=== PATIENT | female | born 1955 | race Caucasian/White ===

== ENCOUNTER 2018-04-19 19:11 | Emergency (ER) | payer OTHER ==
[2018-04-19] MEDS ORDERED: DIPHTH,PERTUSS(ACELL),TET 0.5 ML DISP.SYRIN IM ONE ×2 (19:37→21:15)
[2018-04-19] MEDS ORDERED: IBUPROFEN 600 MG TABLET (FP) PO ONE (19:38)
--- NOTE | 2018-04-19 19:39 | PDOC ---
Rapid Medical Evaluation Time Seen by Provider: 04/19/18 19:37 Medical Evaluation: Allergies Allergy/AdvReac Type Severity Reaction Status Date / Time No Known Allergies Allergy Verified 07/29/11 06:54 04/19/18 19:38 I performed a brief in-person evaluation of this patient. Chief complaint is: Hand laceration Pertinent physical exam findings include: 4cm laceration to palmar aspect of right hand, moderate active bleeding I have ordered the following: Tetanus booster, Motrin Patient will proceed to the ED for further evaluation. Discharge Disposition - Diagnosis Laceration of hand - Referrals - Patient Instructions - Post Discharge Activity
[2018-04-19 19:42] VITALS: BP 144/69; PULSE 81; TEMP 98.3; BMI 36.6
[2018-04-19] MEDS ORDERED: IBUPROFEN 400 MG TABLET (FP) PO ONE (21:15)
[2018-04-19] MEDS ORDERED: LIDOCAINE HCL 1%, 10 MG/ML (50 mL VIAL) SQ ONE (21:18)
[2018-04-19] MEDS ORDERED: LIDOCAINE HCL 1%, 10 MG/ML (20ML VIAL) ONE (21:19)
[2018-04-19] MEDS ORDERED: ACETAMINOPHEN 500 MG TABLET (FP) PO ONE (21:44)
[2018-04-19] MEDS ORDERED: ACETAMINOPHEN 500 MG TABLET (FP) ONE (21:48)
--- NOTE | 2018-04-19 21:52 | PDOC ---
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 Tetanus is updated today in the emergency room Past History - Past Medical History Allergies/Adverse Reactions: Allergies Allergy/AdvReac Type Severity Reaction Status Date / Time No Known Allergies Allergy Verified 07/29/11 06:54 Home Medications: Ambulatory Orders Acetaminophen [Tylenol -] 500 mg PO BID PRN 10/06/17 Medical Marijuana [Medical Marijuana Oil] 1 cap PO BID PRN 12/07/17 Cephalexin [Keflex] 500 mg PO QID #20 capsule 04/19/18 Asthma: No Cancer: No Cardiac Disorders: No COPD: No CHF: No Diabetes: No GI Disorders: Yes (gastritis due to NSAIDs or stress) HTN: No Hypercholesterolemia: Yes (no medication) Liver Disease: No Seizures: No Thyroid Disease: No - Surgical History Abdominal Surgery: No Appendectomy: No Cardiac Surgery: No Cholecystectomy: No Lung Surgery: No Neurologic Surgery: No Orthopedic Surgery: No - Immunization History Immunization Up to Date: Yes - Suicide/Smoking/Psychosocial Hx Smoking Status: No Smoking History: Never smoked Have you smoked in the past 12 months: No Number of Cigarettes Smoked Daily: 0 Information on smoking cessation initiated: No Hx Alcohol Use: No Drug/Substance Use Hx: No Substance Use Type: Alcohol, Marijuana Hx Substance Use Treatment: No Review of Systems - Review of Systems Integumentary: Yes: See HPI *Physical Exam - Vital Signs Last Vital Signs Temp Pulse Resp BP Pulse Ox 98.3 F 81 18 144/69 98 04/19/18 19:40 04/19/18 19:40 04/19/18 19:40 04/19/18 19:40 04/19/18 19:40 - Physical Exam Comments: 04/19/18 21:48 Right hand skin color and temperature are normal. There is about a 3 cm laceration on the ulnar aspect of the right hand overlying the hyperthenar eminence. There are no gross sensorimotor deficit subcutaneous fat is exposed Moderate Sedation - Procedure Monitoring Vital Signs: Procedure Monitoring Vital Signs Temperature 98.3 F 04/19/18 19:40 Pulse Rate 81 04/19/18 19:40 Respiratory Rate 18 04/19/18 19:40 Blood Pressure 144/69 04/19/18 19:40 O2 Sat by Pulse Oximetry (%) 98 04/19/18 19:40 ED Treatment Course - Medications Given in the ED: ED Medications Discontinued Medications Generic Name Dose Route Start Last Admin Trade Name Gaurav PRN Reason Stop Dose Admin Lidocaine HCl 20 ml 04/19/18 21:18 04/19/18 21:28 Xylocaine 1% SQ 04/19/18 21:19 20 ml ONCE ONE Administration Medical Decision Making - Medical Decision Making 04/19/18 21:49 Under aseptic technique 15 mL of 1% lidocaine without epinephrine was injected into the area around the wound, the wound was copiously irrigated edges approximated with 5 horizontal mattress sutures. This was tolerated well dry sterile dressing was placed *DC/Admit/Observation/Transfer Diagnosis at time of Disposition: Laceration of hand - Discharge Dispostion Disposition: HOME Condition at time of disposition: Stable Decision to Admit order: No - Referrals Referrals: Ricardo Saldaña MD [Primary Care Provider] - Khang Ornelas MD [Staff Physician] - - Patient Instructions Printed Discharge Instructions: DI for Laceration Repair, DI for Laceration Repair -- Simple Additional Instructions: Return to the emergency room should symptoms worsen or go unresolved. Please follow-up with hand surgery in 2-3 days for further evaluation and treatment options. Return to the emergency room should symptoms worsen or he develop any pain fever drainage swelling or redness around the area of the wound. The dressing on for 48 hours at the which he may remove and wash and with soap and water and leave it open to air. Prophylactic course of antibiotics was given the please take the medication as directed Tylenol Motrin as directed for pain. - Post Discharge Activity
== END 2018-04-19 22:05 | disposition home or self-care (01) ==
LOC: JERFT 19:11
PROC: 0HQFXZZ Repair Right Hand Skin, External Approach (ICD-10-PCS; principal; 2018-04-19)
PROC: 3E0234Z Introduction of Serum, Toxoid and Vaccine into Muscle, Percutaneous Approach (ICD-10-PCS; 2018-04-19)
DX: S61.411A Laceration without foreign body of right hand, initial encounter (principal); W26.0XXA Contact with knife, initial encounter; Y93.89 Activity, other specified; Y92.89 Other specified places as the place of occurrence of the external cause; E78.00 Pure hypercholesterolemia, unspecified
CPT/HCPCS: 12001-25; 90471; 90715; 99281-25

== ENCOUNTER 2018-04-29 11:39 | Emergency (ER) | payer OTHER ==
[2018-04-29 11:51] VITALS: BMI 36.6
--- NOTE | 2018-04-29 12:04 | PDOC ---
History of Present Illness - General Chief Complaint: Headache Stated Complaint: HEADACHE History Source: Patient Exam Limitations: No Limitations - History of Present Illness Initial Comments: 04/29/18 12:24 63 yo F with a hx of migraines, fibromyalgia, chronic neck/back pain, and HLD presents to the emergency department with 5 days of headache. Per the patient, the pain is 10/10, located in the right frontal and maxillary position, described as sharp/throbbing, without radiation, constant, without relief with tylenol and motrin. She states the headache is similar to previous migraine like headaches in the past, but usually terminated with tylenol and not as localizing (global previous episodes). In addition, she feels a pressure behind her eye that is feels like is pushing her eye into a different direction. Endorses nausea, photophobia, and phonophobia. Denies visual changes, head trauma, fevers, nasal congestion, nose/throat pain, neck pain, chest pain, SOB, and vomiting. Shx: Right shoulder surgery, spine surgeries for herniated discs Allergies: NKDA Social: Denies tobacco, alcohol, and substance abuse. Past History - Past Medical History Allergies/Adverse Reactions: Allergies Allergy/AdvReac Type Severity Reaction Status Date / Time No Known Allergies Allergy Verified 04/29/18 11:46 Home Medications: Ambulatory Orders Acetaminophen [Tylenol -] 500 mg PO BID PRN 10/06/17 Medical Marijuana [Medical Marijuana Oil] 1 cap PO BID PRN 12/07/17 Naproxen [Naprosyn -] 500 mg PO BID #14 tablet 04/29/18 Ondansetron [Zofran -] 4 mg PO TID #15 tablet 04/29/18 Asthma: No Cancer: No Cardiac Disorders: No COPD: No CHF: No Diabetes: No GI Disorders: Yes (gastritis due to NSAIDs or stress) HTN: No Hypercholesterolemia: Yes (no medication) Liver Disease: No Seizures: No Thyroid Disease: No - Surgical History Abdominal Surgery: No Appendectomy: No Cardiac Surgery: No Cholecystectomy: No Lung Surgery: No Neurologic Surgery: No Orthopedic Surgery: No - Immunization History Immunization Up to Date: Yes - Suicide/Smoking/Psychosocial Hx Smoking Status: No Smoking History: Unknown if ever smoked Have you smoked in the past 12 months: No Number of Cigarettes Smoked Daily: 0 Hx Alcohol Use: No Drug/Substance Use Hx: No Substance Use Type: Alcohol, Marijuana Hx Substance Use Treatment: No Review of Systems - Review of Systems Able to Perform ROS?: Yes Is the patient limited Portuguese proficient: No Constitutional: Yes: Weakness. No: Chills, Diaphoresis, Fever HEENTM: Yes: Eye Pain (right eye), Double Vision (transient), Cataracts. No: Recent change in vision, Ear Pain, Ocular Prothesis, Ear Discharge, Nose Pain, Nose Congestion, Tinnitus, Hearing Loss, Throat Pain, Throat Swelling, Mouth Pain Respiratory: No: Cough, Shortness of Breath, Hemoptysis Cardiac (ROS): No: Chest Pain, Lightheadedness, Palpitations, Syncope, Chest Tightness ABD/GI: Yes: Nausea. No: Constipated, Diarrhea, Rectal Bleeding, Vomiting, Tarry Stools : No: Burning, Dysuria, Hematuria, Urgency Musculoskeletal: Yes: Back Pain, Neck Pain. No: Joint Pain Integumentary: No: Erythema, Rash, Sweating Neurological: Yes: Headache. No: Numbness, Tingling, Tremors, Ataxia, Dizziness Psychiatric: No: Stressors Endocrine: No: Unexplained Weight Gain Hematologic/Lymphatic: No: Anemia *Physical Exam - Vital Signs Last Vital Signs Temp Pulse Resp BP Pulse Ox 98.3 F 81 18 133/72 99 04/29/18 11:50 04/29/18 11:50 04/29/18 11:50 04/29/18 11:50 04/29/18 11:50 - Physical Exam General Appearance: Yes: Nourished, Appropriately Dressed, Obese. No: Apparent Distress, Intoxicated HEENT: positive: EOMI, GERARDO, Normal ENT Inspection, Normal Voice, TMs Normal, Pharynx Normal, Nasal Congestion, Sinus Tenderness (left sided frontal tenderness with increased pain in the right), Hearing Grossly Normal. negative : Pale Conjunctivae, Scleral Icterus (R), Scleral Icterus (L), Muffled/Hoarse voice, Pharyngeal Erythema, Tonsillar Exudate, Tonsillar Erythema, Excessive drooling Neck: positive: Trachea midline, Supple. negative: Tender, Lymphadenopathy (R) , Lymphadenopathy (L), Tender lateral, Tender midline Respiratory/Chest: positive: Lungs Clear, Normal Breath Sounds. negative: Chest Tender, Respiratory Distress, Accessory Muscle Use, Crackles, Rales, Rhonchi, Stridor, Wheezing, Hyperresonant Cardiovascular: positive: Regular Rhythm, Regular Rate, S1, S2. negative: Systolic Murmur Gastrointestinal/Abdominal: positive: Normal Bowel Sounds, Flat, Soft. negative : Tender, Guarding, Rebound, Tenderness Lymphatic: negative: Adenopathy Musculoskeletal: positive: Normal Inspection. negative: CVA Tenderness, Vertebral Tenderness Extremity: positive: Normal Capillary Refill, Normal Inspection, Normal Range of Motion. negative: Tender Integumentary: positive: Normal Color, Dry, Warm Neurologic: positive: chair and couch maker II-XII NML intact (visual equity equal bilaterally. 20 /25 bilaterally), Fully Oriented, Alert, Normal Mood/Affect, Normal Response, Motor Strength 5/5. negative: EOM Palsy, Facial Droop, Sensory Deficit Moderate Sedation - Procedure Monitoring Vital Signs: Procedure Monitoring Vital Signs Temperature 98.3 F 04/29/18 11:50 Pulse Rate 81 04/29/18 11:50 Respiratory Rate 18 04/29/18 11:50 Blood Pressure 133/72 04/29/18 11:50 O2 Sat by Pulse Oximetry (%) 99 04/29/18 11:50 ED Treatment Course - LABORATORY CBC & Chemistry Diagram: 04/29/18 13:08 04/29/18 13:30 Medical Decision Making - Medical Decision Making 04/29/18 12:32 63 yo F with a hx of migraines, fibromyalgia, chronic neck/back pain, and HLD presents to the emergency department with 5 days of headache. Initial vitals: Initial Vital Signs Temp Pulse Resp BP Pulse Ox 98.3 F 81 18 133/72 99 04/29/18 11:50 04/29/18 11:50 04/29/18 11:50 04/29/18 11:50 04/29/18 11:50 Work up ddx: migraine with complications vs sinusitis vs Laboratory Tests 04/29/18 04/29/18 13:08 13:30 WBC 8.5 RBC 4.85 Hgb 15.5 H Hct 44.6 MCV 92.0 MCH 31.9 MCHC 34.7 RDW 13.4 Plt Count 195 MPV 9.2 Absolute Neuts (auto) 5.5 Neutrophils % 64.3 Lymphocytes % 26.5 Monocytes % 7.3 Eosinophils % 1.0 Basophils % 0.9 Nucleated RBC % 0 ESR Cancelled Sodium 139 Potassium 4.8 Chloride 108 H Carbon Dioxide 28 Anion Gap 3 L BUN 17 Creatinine 0.9 Creat Clearance w eGFR > 60 Random Glucose 107 H Calcium 8.8 Total Bilirubin 0.8 AST 19 ALT 45 Alkaline Phosphatase 137 H C-Reactive Protein Cancelled Total Protein 7.8 Albumin 4.0 Interventions with the following: tylenol, magnesium, reglan, NS, zofran, and toradol. Patient had significant improvement in pain with these medications. CT head was negative for intracranial pathologies. patient stated this headache is similar to ones she had in the past but with higher severity. likely this is a complicated migraine. will be discharged with neurology follow up. she was able to ambulate on her own volition without complication. Dispo: Discharge 04/30/18 11:10 04/30/18 14:07 *DC/Admit/Observation/Transfer Diagnosis at time of Disposition: Migraine Qualifiers: Migraine type: unspecified Status migrainosus presence: without status migrainosus Intractability: not intractable Qualified Code(s): G43.909 - Migraine, unspecified, not intractable, without status migrainosus - Discharge Dispostion Disposition: HOME Decision to Admit order: No - Prescriptions Prescriptions: Naproxen [Naprosyn -] 500 mg PO BID #14 tablet Ondansetron [Zofran -] 4 mg PO TID #15 tablet - Referrals Referrals: Ricardo Saldaña MD [Primary Care Provider] - Oleksandr Luna MD [Staff Physician] - - Patient Instructions Printed Discharge Instructions: DI for Migraine Additional Instructions: you were seen for your headache. your head CT was negative for acute pathologies. your labs were within normal limits. your headache improved significantly with the medications here. please take the medications prescribed to you as directed. take the naproxen every 12 hours NEEDED for pain. please take the zofran every 8 hours NEEDED for nausea and vomiting. please also follow up with Dr. Luna within 3 days after discharge, your care is considered incomplete until this occurs. please return to the emergency department if you have worsening symptoms or new concerning symptoms such as fevers with headache, weakness on one side, slurring of speech or other signs of stroke, and confusion. thank you. - Post Discharge Activity
--- NOTE | 2018-04-29 12:34 | PDOC ---
Attending Attestation - HPI HPI: 04/29/18 13:31 "The patient is a 63-year-old female with a past medical history significant for fibromyalgia, migraine, HLD and Chronic back pain presents to the emergency department with a headache. The patient presents with 5 days of right frontal and maxillary headache, thats 10/10 in severity. The patient reports the pain is gradual onset, constant, nonradiating, no relief noted with sleeping or with Tylenol or Motrin. The patient reports similar pain in the past, that would go away with Tylenol. The patient reports associated symptoms of right eye pressure , endorses photophobia and phonophobia. Denies recent sickness, nasal congestions, neck pain, cp, sob, numbness?tingling/weakness, focal weakness/ tinging/numnbess or vision changes. Allergies: NKDA Social history: Medical marijuana use. No tobacco or alcohol use reported. Surgical history: Cyst removal PCP: Greg Peralta MD" - Medical Decision Making 04/29/18 13:31 Documentation prepared by Emma Ascencio, acting as medical lab specialist for Gustavo Warner MD. <Emma Ascencio - Last Filed: 04/29/18 13:31> - Resident Resident Name: CaydenWild - ED Attending Attestation I have performed the following: I have examined & evaluated the patient, The case was reviewed & discussed with the resident, I agree w/resident's findings & plan, Exceptions are as noted - Physicial Exam PE: 04/29/18 13:28 GENERAL: The patient is awake, alert, and fully oriented, Nontoxic - in no acute distress. HEAD: Normocephalic, atraumatic, no focal sinus tenderness, no temporal masses or tenderness EYES: extraocular movements intact, sclera anicteric, conjunctiva clear, ENT: Normal voice, Moist mucous membranes. NECK: Normal range of motion, supple LUNGS: Breath sounds equal, clear to auscultation bilaterally. No wheezes, no rhonchi, no rales. HEART: Regular rate and rhythm, normal S1 and S2 without murmur, rub or gallop. ABDOMEN: Soft, nontender, normoactive bowel sounds. No guarding, no rebound. . No CVA tenderness EXTREMITIES: Normal range of motion, no edema. No clubbing or cyanosis. No cords, erythema, or tenderness. NEUROLOGICAL: No facial assymetry, Normal speech, moving all 4 extremities spontaneously and symmetrically, normal gait PSYCH: Normal mood, normal affect. SKIN: Warm, Dry, normal turgor, - Medical Decision Making 04/29/18 12:28 63y F hx of migraine, fibromyalagia, hl, presents with 5 day of headache, gradual onset, constant, loclized to the R side, localized in the frontal/cheeks , throbbing/pressure in nature, no remmitting factors. had some nasal congestion a few days ago but had resolved. Feels similar in nature to previous headache but in the past it would resolve with tylenol. endorses + photophobia, phonophobia denies any fever, chills, cp, sob, nasal congestion, uri, double or blurry vision ddx , migraine, sinus headache, tnesion headache will treat supportively w/ reglan, tylenol, will reassess 04/29/18 16:28 pt feeling improved will dc with pmd fu return precautions were discussed <Gustavo Warner - Last Filed: 05/02/18 00:02>
[2018-04-29] MEDS ORDERED: diphenhydrAMINE HCL 25 MG CAPSULE (FP) PO ONE ×2 (12:43→13:25)
[2018-04-29] MEDS ORDERED: ACETAMINOPHEN 500 MG TABLET (FP) PO ONE (12:43)
[2018-04-29] MEDS ORDERED: METOCLOPRAMIDE HCL 10 MG TABLET (FP) PO ONE ×2 (12:43→13:25)
[2018-04-29] MEDS ORDERED: ACETAMINOPHEN 325 MG TABLET (FP) ONE (13:25)
[2018-04-29] MEDS ORDERED: ACETAMINOPHEN 325 MG TABLET (FP) PO ONE (13:27)
[2018-04-29 13:48] LABS: BASO % 0.9 % (0-2.0); HEMATOCRIT 44.6 % (32.4-45.2); HEMOGLOBIN 15.5 GM/dL (10.7-15.3); LYMPH % 26.5 % (8-40); MCH 31.9 pg (25.7-33.7); MCHC 34.7 g/dl (32.0-36.0); MEAN PLT VOLUME 9.2 fl (7.5-11.1); MONO % 7.3 % (3.8-10.2); NEUT % 64.3 % (42.8-82.8); PLATELET COUNT 195 K/MM3 (134-434); RBC 4.85 M/mm3 (3.60-5.2); RDW 13.4 % (11.6-15.6); WHITE BLOOD COUNT 8.5 K/mm3 (4.0-10.0)
[2018-04-29 14:06] LABS: ALK PHOS 137 U/L (45-117); ANION GAP 3 MMOL/L (8-16); BILIRUBIN,TOTAL 0.8 mg/dL (0.2-1); BLOOD UREA NITROGEN 17 mg/dL (7-18); CALCIUM 8.8 mg/dL (8.5-10.1); CHLORIDE 108 mmol/L (98-107); CO2 28 mmol/L (21-32); CREATININE 0.9 mg/dL (0.55-1.3); GLUCOSE,RANDOM 107 mg/dL (74-106); POTASSIUM 4.8 mmol/L (3.5-5.1); SGOT/AST 19 U/L (15-37); SGPT/ALT 45 U/L (13-61); SODIUM 139 mmol/L (136-145); TOT PROT 7.8 g/dl (6.4-8.2)
[2018-04-29] MEDS ORDERED: KETOROLAC TROMETHAMINE 30 MG/1 ML VIAL IVPUSH ONE (14:21)
[2018-04-29] MEDS ORDERED: ONDANSETRON 4 MG/2 ML VIAL IVPUSH ONE (14:26)
[2018-04-29] MEDS ORDERED: ONDANSETRON 4 MG/2 ML VIAL ONE (14:31)
[2018-04-29] MEDS ORDERED: KETOROLAC TROMETHAMINE 15 MG/ML VIAL ONE (14:31)
[2018-04-29] MEDS ORDERED: MAGNESIUM SULF 50% (8.12 MEQ/2 ML-1 GM VIAL) IVPB ONE (14:38)
[2018-04-29] MEDS ORDERED: MAGNESIUM 1GM/D5W - 1 GM/100 ML IVPB IVPB ONE (14:39)
[2018-04-29 15:54] VITALS: BP 135/79; PULSE 85; TEMP 98.1
== END 2018-04-29 15:54 | disposition home or self-care (01) ==
LOC: JER 11:39
PROC: 3E033GC Introduction of Other Therapeutic Substance into Peripheral Vein, Percutaneous Approach (ICD-10-PCS; principal; 2018-04-29)
PROC: 3E033GC Introduction of Other Therapeutic Substance into Peripheral Vein, Percutaneous Approach (ICD-10-PCS; 2018-04-29)
PROC: 3E0333Z Introduction of Anti-inflammatory into Peripheral Vein, Percutaneous Approach (ICD-10-PCS; 2018-04-29)
DX: G43.909 Migraine, unspecified, not intractable, without status migrainosus (principal)
CPT/HCPCS: 36415; 70450-TC; 80053; 85025; 99283-25

== ENCOUNTER 2018-10-11 06:52 | Day surgery (SDC) | payer OTHER ==
[2018-10-11 08:31] VITALS: TEMP 97.4
[2018-10-16 08:19] VITALS: BP 117/74; PULSE 86
--- NOTE | 2018-10-16 08:19 | HP ---
History of Present Illness Chief Complaint: neck, hand, back pain History of Present Illness: 63 yo woman here for management of chronic neck, joint pain complicated by obesity, anxiety. Was seen in ED 04/19/18 for laceration and 04/29/18 for headache (now resolved) and colonoscopy on 10/11/18. Otherwise doing well - no new medications -here for medical cannabis renewal. Finds the medical cannabis helps her pain. Weight is stable, Sleeps well. Exam Limitations: No Limitations - Vital Signs Blood Pressure: 117/74 Pulse Rate: 86 Respiratory Rate: 16 - Bowel function Bowel Movement: Yes - Hieght/Weight Height: 5 ft 5 in Weight: 220 lb - BMI Body Mass Index (BMI): 36.6 Family Disease History - Family Disease History Family Disease History: Diabetes: Mother ( at age 101 , late onsent diabetes and htn), Sister (one - living -), Heart Disease: Father (, strokes), Mother, Other: Father, Mother, Brother (one half brother - little contact), Sister Past Medical History - Medical History Hx Anemia: No Hx Asthma: No Hx Chronic Obstructive Pulmonary Disease (COPD): No Hx Sleep Apnea: No Hx Cancer: No Hx Cardiac Disorders: No Hx Hypertension: No Hx Hypercholesterolemia: Yes (no medication) Hx Pacemaker: No HX Cerebrovascular Accident: No Hx Seizures: No Hx Diabetes: No Hx Gastrointestinal Disorders: Yes (gastritis due to NSAIDs or stress, COLON POLYP) Hx Liver Disease: No Hx Genitourinary Disorders: No Hx Renal Disease (ESRD): No Hx Thyroid Disease: No Hx Human Immunodeficiency Virus (HIV): No Hx Hepatitis C: No Hx Eye Problem: Yes (needs cataract surgery) Hx Arthritis: Yes Hx Joint Pain: Yes (right shoulder, wrist) Hx Blood Transfusions: No Hx Back Injury: Yes Hx Back Problems: Yes (with neck pain) Hx Degenerative Disk Disease: Yes - Surgical History Hx Neurologic Surgery: No Hx Cataract Extraction: No Hx Cardiac Surgery: No Hx Lung Surgery: No Hx Breast Surgery: No Hx Breast Biopsy: No Hx Abdominal Surgery: No Hx GI Procedures: Yes Hx Appendectomy: No Hx Cholecystectomy: No 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) Hx Genitourinary Surgery: No Hx Section: No Hx Orthopedic Surgery: No Anesthesia Reaction: No - Reproductive History Patient is a Female of Child Bearing Age (11 -55 yrs old): No - Psychiatric History Hx Substance Use Disorder: No Hx Depression: No Hx Anxiety: Yes Hx Bipolar Disorder: No Hx Alcohol Use: Yes (SOCIAL) Hx Schizoid Personality Disorder: No Hx Panic Symptoms: No - Social History Maritial Status: Children: No Education Completed: College Grad - Smoking Cessation Smoking history: Former smoker Tobacco Cessation - "Ask" about Tobacco Use Do you currently use tobacco?: No - Referrals Substance Abuse Hx (chem Dep.) - History Hx Alcohol Use: Yes (once a month has a drink) Hx Substance Use: No Substance Use Type: Alcohol Hx Substance Use Treatment: No Holistic Assessment - Nutritional Patterns Patient Regularly: Makes Healthy Choices Regularly Uses....: Food [place] Nutritional Pattern Comment: coffee,smoothie(fruit,almond milk,carrot,beet, prtein pdwr,banana), salad - Physical Activity Patterns Physical Activity Patterns: Stretches most Days/Week, Housework Most Days Holistic Exam - Medications Home Medications: Home Medications Medication Instructions Recorded Acetaminophen [Tylenol 1,000 mg PO BID PRN 10/06/17 .Extra-Strength -] Cannabis Sativa Seed Oil 1 each PO DAILY 10/10/18 Meloxicam [Mobic] 15 mg PO PRN PRN 10/10/18 - Exam General Appearance: Nourished, Appropriately Dressed, Mild Distress EENTM: EOMI, Normal Voice, Symmetrical, Pharynx Normal, Hearing Grossly Normal Respiratory: Normal Breath Sounds, No Respiratory Distress Cardiology: Regular Rhythm, Regular Rate Abdominal: Soft, Protuberent Back: Decreased Range of Motion Extremities: Normal Inspection, Other (hand stiffness, tight hip flexors) Neurological: Fully Oriented, Alert, Normal Mood/Affect, Normal Response Integumentary: Normal Color, Warm Lymphatic: Within Normal Limits Pain Assessment - Analgesia Average pain level during the past week.(1-10): 3 What was the worst pain level during the past week?: 5 Between 0%-100%, how much of your pain has been relieved?: 40 Is Relief Enough to Make a Difference in your Life?: Yes (helps me do more things at home) - Activities of Daily Living Physical Functioning: Improved Sleep Patterns: Improved - Adverse Reactions Any Side Effects From Current Pain Relievers?: No - Potential Aberrant Drug-Related Behavior Negative Drug Related Behavior: [place] 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 Education - Education Holistic Care Patient Education: Gentle Stretches, Chronic Pain Mangement, Medications Patient Response: Verbalized Understanding - Return to Clinic in Month(s): 6 (urine tox ) Assessment/Plan - Diagnosis (1) Carpal tunnel syndrome on right Status: Chronic Comment: improved with cock up splints worn nightly (2) Chronic neck pain Status: Chronic Comment: consent for medical records, gentle ROM xrays show straightening and degenerative changes, for EMG - did not do yet interested in medical cannabis due to intolerance of opiates/muscle relaxers and lack of efficacy of tylenol - using medical marijuana which is helping - recertified for same - medication safekeeping discussed instructed in postural exercise (3) Chronic right shoulder pain Status: Chronic Comment: topical, avoid carrying or lifting, declined to f/u with ortho Lent- wants conservative tx MRI results noted (partial tear, tendonosis, bursitis) (4) Generalized headaches Status: Chronic Comment: generally feeling improvement - has seen neuro solimon - intolerant of medications (5) Hypercholesteremia Status: Chronic Comment: for f/u with primary - no meds (6) Low back pain Status: Chronic Comment: MRI shows some stenosis, degenerative changes reviewed gentle stretches cont medical marijuana for pain (7) Obesity (BMI 30-39.9) Status: Chronic Comment: counseled walking, pool therapy, reduce food portions
[2018-10-16 08:31] VITALS: BMI 36.6
== END 2018-10-11 09:37 | disposition home or self-care (01) ==
LOC: JASU-ENDO 06:52
PROVIDERS: ATTEND Internal Medicine Gastroenterology
PROC: 0DBP8ZX Excision of Rectum, Via Natural or Artificial Opening Endoscopic, Diagnostic (ICD-10-PCS; 2018-10-11)
PROC: 0DBK8ZX Excision of Ascending Colon, Via Natural or Artificial Opening Endoscopic, Diagnostic (ICD-10-PCS; principal; 2018-10-11 08:00)
DX: Z12.11 Encounter for screening for malignant neoplasm of colon (principal); Z86.010 Personal history of colon polyps; D12.2 Benign neoplasm of ascending colon; K62.1 Rectal polyp
CPT/HCPCS: 88305-TC

== ENCOUNTER 2021-01-16 04:55 | Day surgery (SDC) | payer OTHER ==
[2021-01-14 14:27] VITALS: BMI 39.1
[2021-01-16 11:24] VITALS: TEMP 97.1
[2021-01-16 11:52] VITALS: BP 126/65; PULSE 80
== END 2021-01-16 12:08 | disposition home or self-care (01) ==
LOC: JASU-ENDO 04:55
PROVIDERS: ATTEND Internal Medicine Gastroenterology
PROC: 0DB78ZX Excision of Stomach, Pylorus, Via Natural or Artificial Opening Endoscopic, Diagnostic (ICD-10-PCS; 2021-01-16)
PROC: 0DB68ZX Excision of Stomach, Via Natural or Artificial Opening Endoscopic, Diagnostic (ICD-10-PCS; 2021-01-16)
PROC: 0DB48ZX Excision of Esophagogastric Junction, Via Natural or Artificial Opening Endoscopic, Diagnostic (ICD-10-PCS; 2021-01-16)
PROC: 0DB98ZX Excision of Duodenum, Via Natural or Artificial Opening Endoscopic, Diagnostic (ICD-10-PCS; principal; 2021-01-16 11:00)
DX: K21.00 Gastro-esophageal reflux disease with esophagitis, without bleeding (principal); K31.7 Polyp of stomach and duodenum; K29.50 Unspecified chronic gastritis without bleeding
CPT/HCPCS: 88305-TC; 88342-TC

== ENCOUNTER 2021-07-25 14:09 | Emergency (ER) | payer OTHER ==
[2021-07-25 14:17] VITALS: TEMP 98.6; BMI 32.9
[2021-07-25] MEDS ORDERED: SODIUM CHLORIDE 1,000 ML IV SCH (14:30)
[2021-07-25 15:17] LABS: BASO % 0.9 % (0-2.0); EOS % 1.4 % (0-4.5); HEMATOCRIT 40.9 % (32.4-45.2); HEMOGLOBIN 13.9 GM/dL (10.7-15.3); LYMPH % 32.1 % (8-40); MCH 30.4 pg (25.7-33.7); MEAN CELL VOLUME 89.4 fl (80-96); MEAN PLT VOLUME 8.8 fl (7.5-11.1); MONO % 8.4 % (3.8-10.2); NEUT % 57.2 % (42.8-82.8); PLATELET COUNT 188 10^3/uL (134-434); RBC 4.57 M/mm3 (3.60-5.2); RDW 13.6 % (11.6-15.6); WHITE BLOOD COUNT 5.2 K/mm3 (4.0-10.0)
[2021-07-25 15:21] LABS: INR 1.04 (0.83-1.09)
[2021-07-25 15:24] LABS: ACTIVATED PTT 29.8 SECONDS (25.2-36.5)
[2021-07-25 15:36] LABS: CALCIUM 8.7 mg/dL (8.5-10.1)
[2021-07-25 15:37] LABS: ALBUMIN 3.7 g/dl (3.4-5.0); BLOOD UREA NITROGEN 13.8 mg/dL (7-18)
[2021-07-25 15:40] LABS: CREATININE 0.8 mg/dL (0.55-1.3)
[2021-07-25 15:41] LABS: TOT PROT 7.2 g/dl (6.4-8.2)
[2021-07-25 16:41] VITALS: BP 135/72; PULSE 76
[2021-07-25 17:06] LABS: URINE APPEARANCE CLEAR; URINE BILIRUBIN NEGATIVE (NEGATIVE); URINE COLOR YELLOW; URINE GLUCOSE (UA) NEGATIVE (NEGATIVE); URINE KETONE NEGATIVE (NEGATIVE); URINE LEUK ESTERASE NEGATIVE (NEGATIVE); URINE NITRITE NEGATIVE (NEGATIVE); URINE PROTEIN NEGATIVE (NEGATIVE); URINE UROBILINOGEN 0.2 mg/dL (0.2-1.0)
== END 2021-07-25 17:32 | disposition home or self-care (01) ==
LOC: JER 14:09
DX: G51.0 Bell's palsy (principal)
CPT/HCPCS: 36415; 70450-TC; 70496-TC; 70498-TC; 80053; 80061; 81003; 82962; 83036; 85025; 85610; 85730; 86850; 86900; 86901; 93005; 93010; 99285-25

== ENCOUNTER 2023-10-13 09:37 | Observation (INO) | payer OTHER ==
[2023-10-13 10:24] LABS: BASO % 0.5 % (0-2.0); EOS % 1.5 % (0-4.5); HEMATOCRIT 45.8 % (32.4-45.2); HEMOGLOBIN 15.6 GM/dL (10.7-15.3); LYMPH % 35.1 % (8-40); MCH 30.5 pg (25.7-33.7); MCHC 34.1 g/dl (32.0-36.0); MEAN CELL VOLUME 89.4 fl (80-96); MEAN PLT VOLUME 9.3 fl (7.5-11.1); MONO % 7.1 % (3.8-10.2); NEUT % 55.8 % (42.8-82.8); PLATELET COUNT 228 10^3/uL (134-434); RBC 5.12 M/mm3 (3.60-5.2); RDW 13.4 % (11.6-15.6); WHITE BLOOD COUNT 6.9 K/mm3 (4.0-10.0)
[2023-10-13 10:35] LABS: ACTIVATED PTT 31.2 SECONDS (25.2-36.5); INR 0.92 (0.83-1.09); PROTHROMBIN TIME (PATIENT) 10.6 SEC (9.7-13.0)
[2023-10-13 10:49] LABS: POTASSIUM 3.9 mmol/L (3.5-5.1)
[2023-10-13 10:51] LABS: ALBUMIN 4.4 g/dl (3.4-5.0); BLOOD UREA NITROGEN 15.2 mg/dL (7-18); CALCIUM 9.9 mg/dL (8.5-10.1)
[2023-10-13 10:56] LABS: BILIRUBIN,TOTAL 1.1 mg/dL (0.2-1); TOT PROT 8.3 g/dl (6.4-8.2)
[2023-10-13] MEDS ORDERED: ACETAMINOPHEN INJECTION 100 ML IVPB ONE (11:11)
[2023-10-13] MEDS: ACETAMINOPHEN 1000 MG/100 ML BAG IVPB ONE (11:15)
[2023-10-13] MEDS ORDERED: METOCLOPRAMIDE HCL INJECTION 10 MG/2 ML VIAL ONE (12:48)
[2023-10-13] MEDS: METOCLOPRAMIDE HCL INJECTION 10 MG/2 ML VIAL IVPB ONE (12:51)
[2023-10-13 13:52] LABS: PH,URINE 5.5 (5.0-8.0); URINE APPEARANCE CLEAR; URINE BILIRUBIN NEGATIVE (NEGATIVE); URINE COLOR YELLOW; URINE GLUCOSE (UA) NEGATIVE (NEGATIVE); URINE KETONE NEGATIVE (NEGATIVE); URINE LEUK ESTERASE NEGATIVE (NEGATIVE); URINE NITRITE NEGATIVE (NEGATIVE); URINE PROTEIN NEGATIVE (NEGATIVE); URINE UROBILINOGEN 0.2 mg/dL (0.2-1.0)
[2023-10-13 16:26] VITALS: BMI 35.6
[2023-10-13] MEDS: ASPIRIN 325 MG TABLET PO ONE (17:58)
[2023-10-13] MEDS: ACETAMINOPHEN 500 MG TABLET (FP) PO PRN (21:43)
[2023-10-14] VITALS: RESP 18
[2023-10-14] MEDS: IBUPROFEN 800 MG/8 ML IJ IVPB ONE (02:24)
[2023-10-14] MEDS: IBUPROFEN 400 MG TABLET (FP) PO ONE (02:30)
[2023-10-14 08:39] LABS: HEMATOCRIT 39.1 % (32.4-45.2); HEMOGLOBIN 13.7 GM/dL (10.7-15.3); MCH 30.9 pg (25.7-33.7); MEAN CELL VOLUME 88.2 fl (80-96); MEAN PLT VOLUME 9.3 fl (7.5-11.1); PLATELET COUNT 194 10^3/uL (134-434); RBC 4.43 M/mm3 (3.60-5.2); RDW 13.2 % (11.6-15.6); WHITE BLOOD COUNT 6.5 K/mm3 (4.0-10.0)
[2023-10-14 08:53] LABS: POTASSIUM 4.7 mmol/L (3.5-5.1)
[2023-10-14 08:55] LABS: CALCIUM 8.5 mg/dL (8.5-10.1); MAGNESIUM 2.3 mg/dL (1.8-2.4)
[2023-10-14 08:56] LABS: BLOOD UREA NITROGEN 15.5 mg/dL (7-18)
[2023-10-14 08:59] LABS: CREATININE 0.8 mg/dL (0.55-1.3); PHOSPHOROUS 3.8 mg/dL (2.5-4.9)
[2023-10-14] MEDS: ASPIRIN 81 MG CHEWABLE TABLETS PO SCH (09:51)
[2023-10-14] MEDS: PANTOPRAZOLE 40 MG TABLET PO SCH (09:51)
[2023-10-14] MEDS: ACETAMINOPHEN 1000 MG/100 ML BAG IVPB PRN (11:50)
[2023-10-14] MEDS: predniSONE 20 MG TABLET (UD) PO SCH (21:17)
[2023-10-14] MEDS: valACYclovir HCL 500 MG TABLET (FP) PO SCH (21:18)
[2023-10-15 14:55] VITALS: BP 158/78; PULSE 83; TEMP 97.7
== END 2023-10-15 15:06 | disposition home or self-care (01) ==
LOC: JER 09:37 → JERBED 13:14 → J4W 16:07
PROVIDERS: ADMIT Internal Medicine
PROC: 3E033NZ Introduction of Analgesics, Hypnotics, Sedatives into Peripheral Vein, Percutaneous Approach (ICD-10-PCS; principal; 2023-10-13)
PROC: 3E033GC Introduction of Other Therapeutic Substance into Peripheral Vein, Percutaneous Approach (ICD-10-PCS; 2023-10-13)
DX: G51.0 Bell's palsy (principal); M79.7 Fibromyalgia; G43.909 Migraine, unspecified, not intractable, without status migrainosus; E78.5 Hyperlipidemia, unspecified; M54.9 Dorsalgia, unspecified; G89.29 Other chronic pain; Z87.891 Personal history of nicotine dependence
CPT/HCPCS: 36415; 70450-TC; 70496-TC; 70498-TC; 70551-TC; 80048; 80053; 80061; 81003; 82607; 82746; 82962; 83036; 83735; 84100; 84443; 84484; 85025; 85027; 85610; 85651; 85730; 86140; 86618; 86850; 86900; 86901; 93005; 93010; 96374; 96375; 96376; 99285-25; G0378; J0131; Q9967